=== PATIENT | female | born 1990 | race Caucasian/White ===

== ENCOUNTER 2021-05-09 16:10 | Inpatient (IN) | payer OTHER ==
[2021-05-09] MEDS ORDERED: Lactated Ringers 1,000 ML IV ONE ×2 (17:15→17:48)
[2021-05-09] MEDS ORDERED: Sodium Chloride 0.9% 10 ML Syringe FLUSH PRN (17:45)
[2021-05-09] MEDS ORDERED: ePHEDrine 50 MG/ML SDV IVPUSH PRN ×2 (17:48→20:37)
--- NOTE | 2021-05-09 17:54 | PCM.LDHP ---
L&D History of Present Illness - General Date of Service: 05/09/21 (labor) Admit Problem/Dx: Patient Status Order with Admit Dx/Problem 05/09/21 17:45 Patient Status [ADT] Routine Admission Diagnosis/Problem Admission Diagnosis/Problem Source of Information: Patient History Limitations: Reports: No Limitations - History of Present Illness Introduction:: Kim is a 30 year old G1 who is 41 weeks today. Labor started early this morning and she was seen at [facility] and was 180/0. At 1600 today she presented here and is 4-5/90/0 intact membranes. Labs GBS neg ABO O neg, had Rhogam Rubella immune HIV neg Covid pending Timing/Duration: Reports: minutes: (2-3) Location, : Reports: Abdomen Quality: Reports: Pressure Severity: Severe Improves with: Reports: Other (tub) Worsens with: Reports: Movement - Related Data Allergies/Adverse Reactions: Allergies Allergy/AdvReac Type Severity Reaction Status Date / Time amoxicillin AdvReac Nausea Verified 09/10/20 13:46 penicillin G AdvReac Diarrhea Verified 09/10/20 13:46 valproic acid AdvReac Hallucinati Verified 09/10/20 13:46 ons Home Medications: Home Meds Famotidine [Pepcid] 20 mg PO BID 09/09/20 [History] Pantoprazole Sodium [Protonix] 40 mg PO DAILY 09/09/20 [History] Promethazine [Phenadoz] 12.5 mg RECTAL Q6H PRN 09/09/20 [History] buPROPion HCL [Bupropion HCl Sr] 150 mg PO BID 09/09/20 [History] cloNIDine [cloNIDine HCl] 0.2 mg PO BID PRN 09/09/20 [History] ondansetron HCL [Zofran] 4 mg PO Q8H PRN 09/09/20 [History] 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 Para: 0 LMP (Approximate): (KAMRYN 05/02/21) H&P Review of Systems - Review of Systems: Review Of Systems: See Below General: Reports: No Symptoms HEENT: Reports: No Symptoms Pulmonary: Reports: No Symptoms Cardiovascular: Reports: No Symptoms Gastrointestinal: Reports: No Symptoms Genitourinary: Reports: No Symptoms Musculoskeletal: Reports: No Symptoms Skin: Reports: No Symptoms Psychiatric: Reports: No Symptoms Neurological: Reports: No Symptoms Hematologic/Lymphatic: Reports: No Symptoms Immunologic: Reports: No Symptoms L&D Exam - Exam Exam: See Below - Vital Signs Weight: 185 lb 3.013 oz - OB Specific Contraction Intensity: Strong Movement: Active Heart Tones: Present (145) Heart Rate (FHR) Variability: Moderate (6-25 bpm) Presentation: Vertex Estimated Weight: 7-8 pounds - Ordonez Score Ordonez Score Cervix Position: Anterior Ordonez Score Consistency: Soft Ordonez Score Effacement: >80% Ordonez Score Dilation: > 5 cm Ordonez Score 's Station: -1 ,0 Ordonez Score Total: 12 - Exam General: Alert, Oriented HEENT: Mucosa Moist & [place], Pupils Reactive Neck: Supple Lungs: Normal Respiratory Effort Cardiovascular: Regular Rate, Regular Rhythm GI/Abdominal Exam: Soft Genitourinary: Cervical dilitation, Enlarged uterus Back Exam: Full Range of Motion Extremities: No Pedal Edema, Normal Capillary Refill Skin: Warm Neurological: Reflexes Equal Bilateral Psychiatric: Alert, Normal Affect, Normal Mood - Patient Data Lab Results Last 24 hrs: Laboratory Results - last 24 hr 05/09/21 05/09/21 05/09/21 Range/Units 16:21 16:30 16:59 WBC 20.0 H (4.5-11.0) K/uL RBC 4.22 (3.30-5.50) M/uL Hgb 13.0 (12.0-15.0) g/dL Hct 38.5 (36.0-48.0) % MCV 91 (80-98) fL MCH 31 (27-31) pg MCHC 34 (32-36) % Plt Count 279 (150-400) K/uL Neut % (Auto) 90.5 H (36-66) % Lymph % (Auto) 5.7 L (24-44) % [place] % (Auto) 3.7 (2-6) % Eos % (Auto) 0.0 L (2-4) % Baso % (Auto) 0.1 (0-1) % Urine Color Yellow (YELLOW) Urine Appearance Slightly cloudy A (CLEAR) Urine pH 6.5 (5.0-8.0) Ur Specific [place] >= 1.030 (1.008-1.030) Urine Protein Negative (NEGATIVE) mg/dL Urine Glucose (UA) Negative (NEGATIVE) mg/dL Urine Ketones Negative (NEGATIVE) mg/dL Urine Occult Blood Trace-intact H (NEGATIVE) Urine Nitrite Negative (NEGATIVE) Urine Bilirubin Negative (NEGATIVE) Urine Urobilinogen 0.2 (0.2-1.0) EU/dL Ur Leukocyte Esterase Negative (NEGATIVE) Urine RBC 0-5 (0-5) Urine WBC 0-5 (0-5) Ur Epithelial Cells Many Amorphous Sediment Moderate Urine Bacteria Moderate Urine Mucus Many Urinalysis Comment Clue cells seen Membrane Rupture Negative (NEGATIVE) Urine Opiates Screen (NEGATIVE) Ur Oxycodone Screen (NEGATIVE) Urine Methadone Screen (NEGATIVE) Ur Propoxyphene Screen (NEGATIVE) Ur Barbiturates Screen (NEGATIVE) Ur Tricyclics Screen (NEGATIVE) Ur Phencyclidine Scrn (NEGATIVE) Ur Amphetamine Screen (NEGATIVE) U Methamphetamines Scrn (NEGATIVE) Urine MDMA Screen (NEGATIVE) U Benzodiazepines Scrn (NEGATIVE) U Cocaine Metab Screen (NEGATIVE) U Marijuana (THC) Screen (NEGATIVE) 05/09/21 Range/Units 17:00 WBC (4.5-11.0) K/uL RBC (3.30-5.50) M/uL Hgb (12.0-15.0) g/dL Hct (36.0-48.0) % MCV (80-98) fL MCH (27-31) pg MCHC (32-36) % Plt Count (150-400) K/uL Neut % (Auto) (36-66) % Lymph % (Auto) (24-44) % [place] % (Auto) (2-6) % Eos % (Auto) (2-4) % Baso % (Auto) (0-1) % Urine Color (YELLOW) Urine Appearance (CLEAR) Urine pH (5.0-8.0) Ur Specific [place] (1.008-1.030) Urine Protein (NEGATIVE) mg/dL Urine Glucose (UA) (NEGATIVE) mg/dL Urine Ketones (NEGATIVE) mg/dL Urine Occult Blood (NEGATIVE) Urine Nitrite (NEGATIVE) Urine Bilirubin (NEGATIVE) Urine Urobilinogen (0.2-1.0) EU/dL Ur Leukocyte Esterase (NEGATIVE) Urine RBC (0-5) Urine WBC (0-5) Ur Epithelial Cells Amorphous Sediment Urine Bacteria Urine Mucus Urinalysis Comment Membrane Rupture (NEGATIVE) Urine Opiates Screen Negative (NEGATIVE) Ur Oxycodone Screen Negative (NEGATIVE) Urine Methadone Screen Negative (NEGATIVE) Ur Propoxyphene Screen Negative (NEGATIVE) Ur Barbiturates Screen Negative (NEGATIVE) Ur Tricyclics Screen Negative (NEGATIVE) Ur Phencyclidine Scrn Negative (NEGATIVE) Ur Amphetamine Screen Negative (NEGATIVE) U Methamphetamines Scrn Negative (NEGATIVE) Urine MDMA Screen Negative (NEGATIVE) U Benzodiazepines Scrn Negative (NEGATIVE) U Cocaine Metab Screen Negative (NEGATIVE) U Marijuana (THC) Screen Negative (NEGATIVE) Result Diagrams: 05/09/21 16:59 - Problem List (1) Active labor at term SNOMED Code(s): 94182698 ICD Code: [id number] - Status: Acute Current Visit: Yes Problem List Initiated/Reviewed/Updated: Yes Orders Last 24hrs: Active Orders 24 hr Category Date Time Status Patient Status [ADT] Routine ADT 05/09/21 17:45 Ordered Amniotic Fluid POC Testing [POC Labs] [RC] ASDIRECTED Care 05/09/21 16:21 Active Antiembolic Devices [RC] .Routine Care 05/09/21 17:48 Ordered Communication Order [RC] ASDIRECTED Care 05/09/21 17:45 Ordered Communication Order [RC] ASDIRECTED Care 05/09/21 17:48 Ordered Heart Tones [RC] PER UNIT ROUTINE Care 05/09/21 17:45 Ordered Non Stress Test [RC] Click to Edit Care 05/09/21 17:45 Ordered Insert Urinary Catheter [OM.PC] ASDIRECTED Care 05/09/21 18:00 Ordered Local Anesthetic Infusion Pump [RC] ASDIRECTED Care 05/09/21 17:48 Ordered Notify Provider Vital Signs [RC] PRN Care 05/09/21 17:45 Ordered Notify Provider [RC] PRN Care 05/09/21 17:45 Ordered PCEA Epidural [RC] ASDIRECTED Care 05/09/21 17:48 Ordered PCEA Epidural [RC] ASDIRECTED Care 05/09/21 17:48 Ordered Urinary Catheter Assessment [RC] ASDIRECTED Care 05/09/21 17:48 Ordered VTE/DVT Education [RC] Click to Edit Care 05/09/21 17:48 Ordered Vital Signs [RC] PER UNIT ROUTINE Care 05/09/21 17:45 Ordered CORONAVIRUS COVID-19 DENISSE [MOLEC] Urgent Lab 05/09/21 17:20 Ordered Lactated Ringers [Ringers, Lactated] 1,000 ml Med 05/09/21 17:48 Ordered IV .BOLUS Lactated Ringers [Ringers, Lactated] 1,000 ml Med 05/09/21 18:15 Active IV ASDIRECTED Lactated Ringers [Ringers, Lactated] 1,000 ml Med 05/09/21 17:15 Active IV BOLUS Oxytocin/Normal Saline [Pitocin in NS 20 Units/1,000 ML Med 05/09/21 17:48 Ordered ] 20 unit in 1,000 ml IV ONETIME Sodium Chloride 0.9% [Saline Flush] Med 05/09/21 17:45 Ordered 10 ml FLUSH ASDIRECTED PRN ePHEDrine [ePHEDrine sulfate] Med 05/09/21 17:48 Ordered 10 mg IVPUSH ASDIRECTED PRN DVT/VTE Prophylaxis Reflex [OM.PC] Routine Oth 05/09/21 17:45 Ordered Epidural Catheter Management [OM.PC] Urgent Oth 05/09/21 17:48 Ordered Saline Lock Insert [OM.PC] Routine Oth 05/09/21 17:45 Ordered Resuscitation Status Routine Resus Stat 05/09/21 17:45 Ordered Medication Orders Lactated Ringer's (Ringers, Lactated) 1,000 mls @ 999 mls/hr IV BOLUS ONE Stop: 05/09/21 18:15 Last Admin: 05/09/21 17:15 Dose: 999 mls/hr Documented by: GLADYS Lactated Ringer's (Ringers, Lactated) 1,000 mls @ 125 mls/hr IV ASDIRECTED SINCERE Oxytocin/Sodium Chloride (Pitocin In Ns 20 Units/1,000 Ml) 20 unit in 1,000 mls @ 999 mls/hr IV ONETIME ONE; Protocol Stop: 05/09/21 18:48 Sodium Chloride (Sodium Chloride 0.9% 10 Ml Syringe) 10 ml FLUSH ASDIRECTED PRN PRN Reason: Keep Vein Open Assessment/Plan Comment:: 05/09/21 IUP 41 weeks G1, active labor requesting epidural Plan; Anticipate a vaginal delivery later Currently in tub and IV fluids infusing for epidural
[2021-05-09] MEDS: Lactated Ringers 1,000 ML IV SCH ×2 (18:21→22:11)
[2021-05-09] MEDS ORDERED: Ropivacaine 100 ML ONE (18:35)
--- NOTE | 2021-05-09 19:19 | ANES ---
DATE OF SERVICE: 05/09/2021 Labor Epidural Note I was called this evening by the OB Department for a young lady in labor requesting a labor epidural. I was at the bedside at approximately 1610. A brief history and physical was done with the patient. The patient is allergic to amoxicillin and penicillin and otherwise very healthy. Never had back surgery. She is not on any blood thinners. Does not have any significant heart issues. Risks and benefits including risk for infection, the risk for spinal headache, risk for intravascular injection of local anesthetic were reviewed with the patient. The patient verbalizes understanding, wishes to proceed with the labor epidural at this time. The patient was then sat at the edge of the bed. Betadine prep x3 to the lumbar region was done. Sterile drape was placed. 1% lidocaine skin wheal and deep was done. A 17-gauge Tuohy needle was inserted at approximately the L3-4 position. Loss of resistance was easily achieved. Negative paresthesia, negative heme, negative CSF were noted. Loss of resistance was at approximately 5 cm. Catheter was easily threaded through the Touhy needle. Tuohy needle was withdrawn, catheter was pulled back and secured at approximately 14 cm. At that time, a 5 mL test dose was done. The patient was then laid in supine position with left uterine displacement and slight elevation of the head of the bed. After several minutes after the test dose, it was noted that she did not have any dense subarachnoid block or signs of intravascular injection of the local. I then proceeded to give the patient 12 mL bolus of 0.2% ropivacaine via the epidural and started her on a 0.2% ropivacaine drip at 12 mL an hour. Overall, the patient tolerated the epidural without difficulty. Prior to leaving, the patient's blood pressures were good and she said that she was starting to feel a little bit of the effect of the epidural. We will be available as needed. Rj Fernandez CRNA /[id number]
[2021-05-09] MEDS ORDERED: fentaNYL 250 MCG/5 ML SDV ONE (19:47)
[2021-05-09] MEDS ORDERED: Midazolam 1 MG/ML 2 ML SDV ONE (19:48)
[2021-05-09] MEDS ORDERED: Glycopyrrolate 0.2 MG/ML 5 ML MDV ONE (19:50)
[2021-05-09] MEDS ORDERED: Dexamethasone 4 MG/ML SDV ONE (19:50)
[2021-05-09] MEDS ORDERED: Rocuronium 50 MG/5 ML Vial ONE (19:50)
[2021-05-09] MEDS ORDERED: Neostigmine Methylsulfate 1 MG/ML 5 ML Syringe ONE (19:50)
[2021-05-09] MEDS ORDERED: Ondansetron 4 MG/2 ML SDV ONE (19:50)
[2021-05-09] MEDS ORDERED: Propofol 200 MG/20 ML SDV ONE (19:50)
[2021-05-09] MEDS ORDERED: Succinylcholine 200 MG/10 ML MDV ONE (19:50)
[2021-05-09] MEDS ORDERED: Oxytocin 10 Units/1 ML SDV ONE ×2 (19:52→19:58)
[2021-05-09] MEDS ORDERED: Sodium Chloride 0.9% 10 ML ONE ×2 (20:11→20:17)
[2021-05-09] MEDS ORDERED: ceFAZolin 1 GM Vial ONE (20:11)
[2021-05-09] MEDS ORDERED: Morphine PF 10 MG/10 ML SDV ONE (20:17)
[2021-05-09] MEDS ORDERED: Witch Hazel Medicated Pads 100/Jar TOP ONE (20:37)
[2021-05-09] MEDS ORDERED: diphenhydrAMINE 50 MG/ML SDV IVPUSH PRN (20:37)
[2021-05-09] MEDS ORDERED: Lanolin 100% Cream 40 GM Tube TOP ONE (20:37)
[2021-05-09] MEDS ORDERED: Benzocaine 20% Top Spray 56 GM Bottle TOP ONE (20:37)
[2021-05-09] MEDS ORDERED: Simethicone 80 MG Tab.Chew PO PRN (20:37)
[2021-05-09] MEDS ORDERED: Ondansetron 4 MG Tab.DIS PO PRN (20:37)
[2021-05-09] MEDS ORDERED: Naloxone 0.4 MG/ML SDV IVPUSH PRN (20:37)
[2021-05-09] MEDS ORDERED: fentaNYL 100 MCG/2 ML SDV IVPUSH PRN ×2 (20:37→20:40)
[2021-05-09] MEDS ORDERED: Bisacodyl 10 MG Supp RECTAL PRN (20:37)
[2021-05-09] MEDS ORDERED: hydrOXYzine HCL 100 MG/2 ML SDV IM PRN (20:40)
--- NOTE | 2021-05-09 20:47 | PCM.PNLD ---
Labor Progress Note - VS & Meds Vital Signs: Last Vital Signs Temp 97.0 F 05/09/21 17:00 Pulse 82 05/09/21 18:45 Resp 18 05/09/21 18:45 BP 121/66 05/09/21 18:45 Pulse Ox 90 L 05/09/21 18:45 Active Medications: Current Medications Benzocaine (Benzocaine 20% Top [place] 56 Gm Bottle) 0 gm TOP Q4H ONE Stop: 05/09/21 20:38 Bisacodyl (Bisacodyl 10 Mg Supp) 10 mg RECTAL BID PRN PRN Reason: Constipation Diphenhydramine HCl (Diphenhydramine 50 Mg/Ml Sdv) 25 mg IVPUSH Q6H PRN PRN Reason: Itching or Nausea Emollient Ointment (Lanolin 100% Cream 40 Gm Tube) 40 gm TOP ASDIRECTED ONE Stop: 05/09/21 20:38 Ephedrine Sulfate (Ephedrine 50 Mg/Ml Sdv) 10 mg IVPUSH ASDIRECTED PRN PRN Reason: Hypotension Ephedrine Sulfate (Ephedrine 50 Mg/Ml Sdv) 5 mg IVPUSH ASDIRECTED PRN PRN Reason: Other Fentanyl (Fentanyl 100 Mcg/2 Ml Sdv) 10 mcg IVPUSH Q2H PRN PRN Reason: Pain (severe 7-10) Fentanyl (Fentanyl 100 Mcg/2 Ml Sdv) 10 - 30 mcg IVPUSH Q1H PRN PRN Reason: Pain (severe 7-10) Hydroxyzine HCl (Hydroxyzine Hcl 100 Mg/2 Ml Sdv) 50 mg IM Q4H PRN PRN Reason: Nausea Lactated Ringer's (Ringers, Lactated) 1,000 mls @ 125 mls/hr IV ASDIRECTED SINCERE Last Admin: 05/09/21 18:21 Dose: 125 mls/hr Documented by: Ibuprofen (Ibuprofen 800 Mg Tab) 800 mg PO Q8H PRN PRN Reason: mild pain or fever Naloxone HCl (Naloxone 0.4 Mg/Ml Sdv) 0.1 mg IVPUSH ASDIRECTED PRN PRN Reason: Respiratory Depression Ondansetron HCl (Ondansetron 4 Mg Tab.Dis) 8 mg PO Q6H PRN PRN Reason: Nausea/Vomiting Oxycodone/Acetaminophen (Acetaminophen/Oxycodone 325-5 Mg Tab) 2 tab PO Q4H PRN PRN Reason: Pain (moderate 4-6) Prenat Multivit/[employer] Specialist/Iron/Folic Ac ( Multivitamin With Calcium/Folic Acid/Iron Tab) 1 each PO DAILY SINCERE Simethicone (Simethicone 80 Mg Tab.Chew) 80 mg PO Q4H PRN PRN Reason: Gas Sodium Chloride (Sodium Chloride 0.9% 10 Ml Syringe) 10 ml FLUSH ASDIRECTED PRN PRN Reason: Keep Vein Open Witch Chantell (Witch Chantell Medicated Pads 100/Jar) 1 pad TOP ASDIRECTED ONE Stop: 05/09/21 20:38 Discontinued Medications Cefazolin Sodium (Cefazolin 1 Gm Vial) Confirm Administered Dose 2 gm .ROUTE .STK-MED ONE Stop: 05/09/21 20:12 Dexamethasone (Dexamethasone 4 Mg/Ml Sdv) Confirm Administered Dose 4 mg .ROUTE .STK-MED ONE Stop: 05/09/21 19:51 Fentanyl (Fentanyl 250 Mcg/5 Ml Sdv) Confirm Administered Dose 250 mcg .ROUTE .STK-MED ONE Stop: 05/09/21 19:48 Glycopyrrolate (Glycopyrrolate 0.2 Mg/Ml 5 Ml Mdv) Confirm Administered Dose 1 mg .ROUTE .STK-MED ONE Stop: 05/09/21 19:51 Lactated Ringer's (Ringers, Lactated) 1,000 mls @ 999 mls/hr IV BOLUS ONE Stop: 05/09/21 18:15 Last Admin: 05/09/21 17:15 Dose: 999 mls/hr Documented by: Oxytocin/Sodium Chloride (Pitocin In Ns 20 Units/1,000 Ml) 20 unit in 1,000 mls @ 999 mls/hr IV ONETIME ONE; Protocol Stop: 05/09/21 18:48 Lactated Ringer's (Ringers, Lactated) 1,000 mls @ 999 mls/hr IV .BOLUS ONE Stop: 05/09/21 18:48 Last Admin: 05/09/21 18:25 Dose: Not Given Documented by: Ropivacaine (Naropin 0.2%) Confirm Administered Dose 100 mls @ as directed .ROUTE .STK-MED ONE Stop: 05/09/21 18:36 Sodium Chloride (Normal Saline) Confirm Administered Dose 10 mls @ as directed .ROUTE .STK-MED ONE Stop: 05/09/21 20:12 Sodium Chloride (Normal Saline) Confirm Administered Dose 10 mls @ as directed .ROUTE .STK-MED ONE Stop: 05/09/21 20:18 Midazolam HCl (Midazolam 1 Mg/Ml 2 Ml Sdv) Confirm Administered Dose 2 mg .ROUTE .STK-MED ONE Stop: 05/09/21 19:49 Morphine Sulfate (Morphine Pf 10 Mg/10 Ml Sdv) Confirm Administered Dose 10 mg .ROUTE .STK-MED ONE Stop: 05/09/21 20:18 Neostigmine Methylsulfate (Neostigmine Methylsulfate 1 Mg/Ml 5 Ml Syringe) Confirm Administered Dose 5 mg .ROUTE .STK-MED ONE Stop: 05/09/21 19:51 Ondansetron HCl (Ondansetron 4 Mg/2 Ml Sdv) Confirm Administered Dose 4 mg .ROUTE .STK-MED ONE Stop: 05/09/21 19:51 Oxytocin (Oxytocin 10 Units/1 Ml Sdv) Confirm Administered Dose 20 unit .ROUTE .STK-MED ONE Stop: 05/09/21 19:53 Oxytocin (Oxytocin 10 Units/1 Ml Sdv) Confirm Administered Dose 10 unit .ROUTE .STK-MED ONE Stop: 05/09/21 19:59 Propofol (Propofol 200 Mg/20 Ml Sdv) Confirm Administered Dose 200 mg .ROUTE .STK-MED ONE Stop: 05/09/21 19:51 Rocuronium Odem (Rocuronium 50 Mg/5 Ml Vial) Confirm Administered Dose 50 mg .ROUTE .STK-MED ONE Stop: 05/09/21 19:51 Succinylcholine Chloride (Succinylcholine 200 Mg/10 Ml Mdv) Confirm Administered Dose 200 mg .ROUTE .STK-MED ONE Stop: 05/09/21 19:51 - Uterine Contractions Uterine Monitoring Mode: External Adeline Contraction Frequency (min): 2-4 Contraction Duration (sec): 60-90 Contraction Intensity: Strong Uterine Resting Tone: Soft - Monitoring Monitor Mode: External Ultrasound Heart Rate (FHR) Baseline: 125 Heart Rate (FHR) Variability: Moderate (6-25 bpm) Decelerations: Early, Prolonged (>2x10 min), Recurrent (>50% x 20 min) Strip Review: Category III - Vaginal Exam Dilation (cm): 9 Effacement (Percent): 100 Station: 2 Cervical Position: Midposition Sterile Vaginal Exam Performed By: jayleen chan - Labor Progress (Free Text) Labor Progress: baby did not tolerate contractions. After rupture with thick meconium no position was good. Prema progressed quickly but baby was to high for a vacuum. During contractions we would have heart tone down into to 60's and 70's with slow return to baseline. decision to go to OR and stat c section was called. I checked her in the OR and she was complete. one attempt at pushing with same result with super low heart tones. Still to high for vacuum. proceeded to operative delivery.
--- NOTE | 2021-05-09 22:01 | CRLCR ---
For Patients: As a result of the Cures Act, medical imaging exams and procedure reports are released immediately into your electronic medical record. You may view this report before your referring provider. If you have questions, please contact your health care provider. INDICATION: Stat . Instrument and lap sponge count not performed. TECHNIQUE: Supine AP view of the abdomen, 2 images. COMPARISON : None. FINDINGS: Thin wire like opacity coursing over the right upper quadrant and lumbar spine. No other foreign body is evident. IMPRESSION: Thin wirelike foreign body project over the right upper quadrant and lumbar spine. Dictated by Dany Del Rosario MD @ 05/09/2021 9:59:47 PM (Electronically Signed)
[2021-05-10] MEDS: Ibuprofen 800 MG Tab PO PRN ×2 (04:56→13:45)
[2021-05-10] MEDS: Lactated Ringers 1,000 ML IV SCH (05:56)
[2021-05-10] MEDS ORDERED: Benzocaine 20% Top Spray 56 GM Bottle TOP PRN (07:25)
[2021-05-10] MEDS ORDERED: Lanolin 100% Cream 40 GM Tube TOP PRN (07:28)
[2021-05-10] MEDS ORDERED: Witch Hazel Medicated Pads 100/Jar TOP ONE (07:45)
[2021-05-10] MEDS: Prenatal Multivitamin with Calcium/Folic Acid/Iron Tab PO SCH (09:01)
--- NOTE | 2021-05-10 09:10 | OR ---
DATE OF PROCEDURE: 05/09/2021 SURGEON: Timo Brown MD PROCEDURES: section with aftercare. FINDINGS: 1. Stat due to the rapid decelerations of baby. 2. Somewhat flaccid baby on delivery. 3. Cord very friable and probably not completely developed/ischemic. COMPLICATION: None. ANESTHESIA: General. PIE FILLER: Patricia Samson CNM. RISK: Prior to surgery, risks, benefits, alternatives, and limitations including, but not limited to infection, bleeding, injury to baby, bladder, chronic wounds, chronic pain, requirement for reoperation, blood transfusion, and other risks were explained to the patient, and they wished to proceed. PROCEDURE IN DETAIL: The patient was placed in supine position. A Pfannenstiel-type incision was made in a classic pattern. This was performed rapidly using a 15 blade and was carried down with electrocautery and combination of 15 blade to the external oblique aponeurosis, which was also opened sharply. The rectus muscles were spread. The peritoneum was entered bluntly. Uterus was identified. The bladder was deflected below this. The bladder blade was used to protect this throughout the procedure. The uterus was entered bluntly. Meconium was noted. Although this was meconium, there was not a large amount of fluid noted. The baby was deep in the pelvis, but was delivered without significant difficulty. The cord was clamped and cut. Applying any traction on the cord caused it to do two separate and tear. The placenta was delivered. The uterus was inspected for remnant material and none was noted. Minimal bleeding was noted in the uterine wall, in fact this was controlled with direct pressure and/or electrocautery. The uterus was closed with #1 Vicryl running suture in two layers. The bladder was reapproximated. All layers were irrigated. The uterus was placed back in the abdomen after checking for clots. The abdomen was irrigated again and again. Rectus muscles were reapproximated with #1 Vicryl. Fascia was closed with #1 Vicryl in a running fashion x2. Subcutaneous tissues were reapproximated with 3-0 Vicryl. Skin was closed with 4-0 Vicryl. Dermabond was applied. The patient tolerated the procedure well. Timo Brown MD /[id number]
[2021-05-10] MEDS: Acetaminophen/oxyCODONE 325-5 MG Tab PO PRN ×4 (09:44→23:11)
[2021-05-10] MEDS: Docusate Sodium 100 MG Cap PO SCH (10:43)
--- NOTE | 2021-05-10 14:16 | PN ---
DATE OF SERVICE: 05/10/2021 SUBJECTIVE: The patient is doing well. Pain is well controlled. No nausea, vomiting, shortness of breath, or chest pain. OBJECTIVE: VITAL SIGNS: Stable. Afebrile per nursing report. CARDIOVASCULAR: Regular rhythm and rate. RESPIRATORY: Lungs clear to auscultation bilaterally. ABDOMEN: Incision is healing well. ASSESSMENT: Status post section. PLAN: The patient is doing well. Hemoglobin has stabilized. She is not actively bleeding. White count is elevated, which is expected in this stage of postoperative course. We will recheck white blood cell count in the morning. Anticipate discharge in 48 hours. Timo Brown MD /[id number]
[2021-05-10] MEDS ORDERED: Lidocaine 5% 700 MG Patch TRDERM SCH (20:00)
[2021-05-11] MEDS: Acetaminophen/oxyCODONE 325-5 MG Tab PO PRN ×2 (08:10→13:34)
[2021-05-11] MEDS: Ibuprofen 800 MG Tab PO PRN (08:11)
[2021-05-11] MEDS: Docusate Sodium 100 MG Cap PO SCH (09:17)
[2021-05-11] MEDS: Prenatal Multivitamin with Calcium/Folic Acid/Iron Tab PO SCH (09:17)
== END 2021-05-11 13:48 | disposition home or self-care (01) | DRG 788 ==
LOC: JP.OBCHECK 16:10 → JP.OB 16:15 → JP.OBCHECK 16:49 → JP.OB 16:50 → OBSVTOIN 20:09 → JP.MS 05-10 03:46
PROVIDERS: ADMIT Nurse Practitioner Family; ATTEND Nurse Practitioner Family
PROC: 10D00Z1 Extraction of Products of Conception, Low, Open Approach (ICD-10-PCS; principal; 2021-05-09)
PROC: 3E0R3BZ Introduction of Anesthetic Agent into Spinal Canal, Percutaneous Approach (ICD-10-PCS; 2021-05-09)
PROC: 00HU33Z Insertion of Infusion Device into Spinal Canal, Percutaneous Approach (ICD-10-PCS; 2021-05-09)
DX: O48.0 Post-term pregnancy (principal); Z37.0 Single live birth; O76 Abnormality in fetal heart rate and rhythm complicating labor and delivery; Z20.822 Contact with and (suspected) exposure to COVID-19; O77.0 Labor and delivery complicated by meconium in amniotic fluid; Z3A.41 41 weeks gestation of pregnancy; Z88.0 Allergy status to penicillin
CPT/HCPCS: 36415; 51702; 74018; 80048; 80305-QW; 81001; 84112; 85025; 88307; 99211; A9270-GY; J0330; J0690; J1100; J1200; J2250; J2270; J2405; J2590; J2704; J2710; J2795; J3010; J3490; J7120; U0002

== ENCOUNTER 2023-02-18 20:44 | Emergency (ER) | payer OTHER ==
[2023-02-18] MEDS ORDERED: Acetaminophen/HYDROcodone 325-5 MG Tab PO STA (22:31)
== END 2023-02-18 23:48 | disposition home or self-care (01) ==
LOC: JP.ED 20:44
DX: S62.617A Displaced fracture of proximal phalanx of left little finger, initial encounter for closed fracture (principal); Z88.0 Allergy status to penicillin; Z88.8 Allergy status to other drugs, medicaments and biological substances; W23.1XXA Caught, crushed, jammed, or pinched between stationary objects, initial encounter
CPT/HCPCS: 29125; 73130-LT; 99282; 99283; A9270-GY

== ENCOUNTER 2023-02-23 08:29 | Day surgery (SDC) | payer OTHER ==
[2023-02-23] MEDS ORDERED: fentaNYL 100 MCG/2 ML SDV ONE ×2 (08:39→09:24)
[2023-02-23] MEDS ORDERED: Propofol 200 MG/20 ML SDV ONE ×2 (08:39→09:24)
[2023-02-23 08:58] LABS: HEMATOCRIT 37.5 % (34.3-46.0); HEMOGLOBIN 12.3 g/dL (11.2-15.5); MEAN CORPUSCULAR HEMOGLOBIN 29.4 pg (31.6-35.5); MEAN CORPUSCULAR HGB CONC 32.8 g/dL (31.6-35.5); MEAN CORPUSCULAR VOLUME 89.5 fL (81.4-99.0); RED BLOOD CELL COUNT 4.19 M/uL (3.77-5.24); WHITE BLOOD CELL COUNT,WBC 6.6 K/uL (3.2-11.0)
[2023-02-23] MEDS ORDERED: Lactated Ringers 1,000 ML IV SCH (09:00)
[2023-02-23] MEDS ORDERED: Nozin Nasal Sanitizer NASBOTH ONE (09:00)
[2023-02-23 09:14] LABS: CALCIUM 8.5 mg/dL (8.5-10.1); CREATININE 0.8 mg/dL (0.6-1.0); EST CRCL DRUG DOSING (CG) 77.59 mL/min
[2023-02-23] MEDS ORDERED: Midazolam 1 MG/ML 2 ML SDV ONE (09:24)
[2023-02-23] MEDS ORDERED: ceFAZolin 1 GM in Premix Bag 1 BAG IV ONE (09:45)
[2023-02-23] MEDS ORDERED: Bupivacaine 0.5% 30 ML SDV ONE (10:15)
[2023-02-23] MEDS ORDERED: Acetaminophen/HYDROcodone 325-5 MG Tab PO ONE (12:13)
== END 2023-02-23 14:05 | disposition home or self-care (01) ==
LOC: JP.SDS 08:29
PROVIDERS: ATTEND Specialist
DX: S62.617A Displaced fracture of proximal phalanx of left little finger, initial encounter for closed fracture (principal); Z88.0 Allergy status to penicillin; Z88.8 Allergy status to other drugs, medicaments and biological substances
CPT/HCPCS: 26727; 36415; 76000; 80048; 81025; 85027; A9270; C1713; J0690; J2250; J2704; J3010; J3490; J7120